=== PATIENT | male | born 1965 | race Caucasian/White ===

== ENCOUNTER 2020-04-03 01:35 | Outpatient (CLI) | payer BC, OTHER ==
[2020-04-03 17:40] LABS: SARS-CoV-2 MS2 Positive; SARS-CoV-2 N Gene Negative; SARS-CoV-2 S Gene Negative; SARS-CoV-2 orf1ab Negative
== END 2020-04-03 01:36 | disposition home or self-care (01) ==
LOC: ERS 01:35
PROVIDERS: ATTEND Family Medicine
DX: Z01.812 Encounter for preprocedural laboratory examination (principal); Z11.59 Encounter for screening for other viral diseases
CPT/HCPCS: 87635; U0003

== ENCOUNTER 2020-04-05 19:00 | Outpatient (CLI) | payer BC | END 2020-04-05 19:01 | disposition home or self-care (01) | LOC: SLEEPLAB 19:00 | PROVIDERS: ATTEND Family Medicine | DX: G47.33 Obstructive sleep apnea (adult) (pediatric) (principal); R53.83 Other fatigue; E66.9 Obesity, unspecified; R06.83 Snoring; I10 Essential (primary) hypertension; F41.9 Anxiety disorder, unspecified; G47.00 Insomnia, unspecified; G47.9 Sleep disorder, unspecified | CPT/HCPCS: 95811 ==

== ENCOUNTER 2024-08-04 14:10 | Outpatient (CLI) | payer BC ==
[~2024-08-04 14:10] MED LIST: Iopamidol 370 76% 100 ML VIAL ONE
== END 2024-08-04 14:11 | disposition home or self-care (01) ==
LOC: CT 14:10
PROVIDERS: ATTEND Family Medicine
DX: R63.4 Abnormal weight loss (principal)
CPT/HCPCS: 74177; Q9967